=== PATIENT | female | born 1945 | race Caucasian/White ===

== ENCOUNTER 2016-08-14 16:25 | Inpatient (IN) | payer OTHER, MEDICAID ==
[~2016-08-14] VITALS: Ht 167.6 cm; Wt 74.4 kg
[~2016-08-14 16:25] MED LIST: ABILIFY5 MG PO; ALAVERT10 MG PO; AMBIEN5 MG PO; AMITIZA24 MCG PO; ASPI-COR81 M1 PO; ASPIRIN81 M1 PO; BACTRIM DS 800/1 TAB PO; BENZTROPINE2 MG PO; CARBIDOPA & LEV1 TA1 PO; COLACE100 M1 PO; DEPAKOTE ER500 MG PO; DOCUSATE SODIU250 M1 PO; EVISTA60 MG PO; LASIX20 MG PO; LEVOTHYROXIN0.075 M1 PO; MOTRIN600 MG PO; NEURONTIN300 MG PO; OMEPRAZOLE20 M1 PO; OXYBUTYNIN10 MG PO; OYSCO 500500 M1 PO; OYSTER CALCIUM500 M1 PO; RISPERIDONE4 MG PO; SEROQUEL200 MG PO; SEROQUEL300 MG PO; SEROQUEL50 MG PO; SYNTHROID0.088 MG PO; TEGRETOL200 M1 PO; VITAMIN D35000 IU PO; ZYPREXA10 MG PO; ZYPREXA15 MG PO
[2016-08-14 16:37] VITALS: BP 102/83
--- NOTE | 2016-08-14 16:49 | NUR ---
Patient taken to XRAY via wheelchair per tech.
--- NOTE | 2016-08-14 17:00 | NUR ---
Patient back from XRAY via wheelchair per tech.
--- NOTE | 2016-08-14 19:50 | NUR ---
LAC TO LEFT HAND IS CAUSED BY PT BITING ON HER HAND, SWELLING TO LEFT HAND IS RELATED TO HER PULLING ON HER FINGERS
--- NOTE | 2016-08-14 19:50 | NUR ---
PATIENT PRESENTS TO ED WITH C/O L HAND AND FINGER SWELLING X 1 DAY S/P PT PULLING ON FINGERS WITH A LAC TO THE L HAND AND A LEFT SIDE HIP DECUB; SEEN AT [facility] FOR TX GIVEN SANTYL OINT AND FOAM . PT DENIES N/V/D; SKIN IS PINK/WARM/DRY; AAOX4 WITH EVEN AND STEADY GAIT; LUNGS CLEAR BL; HR EVEN AND REGULAR; PT DENIES ANY FEVER, CP, SOB, OR COUGH AT THIS TIME; PATIENT STATES PAIN OF 0/10 AT THIS TIME; VSS; PATIENT POSITIONED FOR COMFORT; HOB ELEVATED; BEDRAILS UP X2; BED DOWN. ER MD MADE AWARE OF PT STATUS.
--- NOTE | 2016-08-14 19:50 | NUR ---
TO ER BED 8
--- NOTE | 2016-08-14 20:48 | NUR ---
Patient being evaluated by physician DR MANJARREZ at bedside.
[2016-08-14] MEDS ORDERED: NACL 0.9% 1,000 ML IV ONE (21:05)
[2016-08-14] MEDS ORDERED: CLINDAMYCIN 900 MG in DEXTROSE 5% 100 ML IV ONE (22:00)
[2016-08-14] MEDS ORDERED: PIPERACILLIN/TAZOBACTAM 3.375 GM in DEXTROSE 5% 50 ML IV ONE (22:05)
[2016-08-14] MEDS: NACL 0.9% 1,000 ML IV SCH (22:09)
[2016-08-14] MEDS ORDERED: ONDANSETRON 4 MG/2 ML VIAL IVP PRN (22:10)
[2016-08-14] MEDS ORDERED: HYDROcodone/APAP 5/325 MG 1 TAB TAB PO PRN (22:10)
[2016-08-14] MEDS ORDERED: MORPHINE SULFATE 2 MG/ML SYR IVP PRN (22:10)
[2016-08-14] MEDS ORDERED: CLINDAMYCIN 900 MG/6 ML VIAL IV ONE (22:10)
[2016-08-14] MEDS ORDERED: LEVOFLOXACIN 500 MG/D5W PREMIX 100 ML IV SCH (22:10)
[2016-08-14] MEDS ORDERED: THERAHONEY GEL 42.5 GM TP PRN (22:15)
[2016-08-14] MEDS ORDERED: ALBUTEROL SULFATE/IPRATROPIU 3 ML SOL IH PRN (22:20)
--- NOTE | 2016-08-14 22:32 | NUR ---
Patient will be admitted to care of DR MILLER . Admited to TELE 109A. Will go to room 109A . Belongings list completed. Report to ANA MARIE .
--- NOTE | 2016-08-14 22:32 | NUR ---
Pt report given to ANA MARIE . Transfer of care at this time.
--- NOTE | 2016-08-14 22:32 | NUR ---
ANA RN TO INFUSE ZOSYN AFTER CLEOCIN COMPLETED
[2016-08-14] MEDS: ALBUTEROL SULFATE/IPRATROPIU 3 ML SOL IH SCH (23:00)
[2016-08-14] MEDS ORDERED: LORazepam 2 MG/ML VIAL ONE (23:19)
--- NOTE | 2016-08-14 23:30 | NUR ---
PATIENT ARRIVED ON UNIT VIA GURNEY. PATIENT IS AWAKE NOT ORIENTED. ACCOMPANIED BY CAREGIVER. PATIENT IS AAOX1, ON ROOM AIR, PATIENT TRANSFERRED TO BED IN ROOM. PATIENT WAS SCREAMING AND TRYING TO HIT AND BITE. SKIN IS NON INTACT WITH LEFT HIP DECUB ULCER COVERED WITH DRESSING, DRY AND INTACT, PATIENT ALSO HAS ABRASIONS TO RIGHT AND LEFT HANDS WITH CELLULITIS TO RIGHT HAND. IV TO RIGHT AC PATENT AND INTACT. PATIENT CONNECTED TO TELE MONITOR. DISCUSSED PLAN OF CARE WITH PATIENT, PATIENT UNABLE TO COMPREHEND. SAFETY MEASURES CHECKED, BED ALARM ON, CALL LIGHT WITHIN REACH. WILL CONTINUE TO MONITOR.
[2016-08-15] VITALS: BP 151/72
--- NOTE | 2016-08-15 | NUR ---
PATIENT WAS AGITATED AND SCREAMING, ADMINISTERED ATIVAN PER MD ORDER, CALL LIGHT WITHIN REACH. WILL CONTINUE TO MONITOR.
[2016-08-15] MEDS ORDERED: PIPERACILLIN/TAZOBACTAM 3.375 GM VIAL IV ONE (00:24)
[2016-08-15] MEDS: LORazepam 2 MG/ML VIAL IVP PRN ×2 (00:34→04:43)
--- NOTE | 2016-08-15 02:20 | NUR ---
PATIENT RESTING CALM IN BED, NO SOB OR SIGN OF DISTRESS AT THIS TIME, CALL LIGHT WITHIN REACH. WILL CONTINUE TO MONITOR.
--- NOTE | 2016-08-15 02:57 | NUR ---
PATIENT SCREAMING, APPEARS UNCOMFORTABLE, ADMINISTERED MORPHINE PER MD ORDER, WILL CONTINUE TO MONITOR.
[2016-08-15] MEDS: ALBUTEROL SULFATE/IPRATROPIU 3 ML SOL IH SCH ×4 (03:00→15:57)
--- NOTE | 2016-08-15 03:10 | NUR ---
PT WAS AGITATED, SCREAMING AND RN GAVE HER ATIVAN AND FINALLY FELT ASLEEP.HOLD HHN NEB DUE TO HER CONDITION AND PER/RN.NO DISTRESS NOTED OR SOB , SAT 96%IN ROOM AIR
[2016-08-15 04:00] VITALS: BP 123/64
--- NOTE | 2016-08-15 04:18 | NUR ---
VITAL SIGNS STABLE, PATIENT SLEEPING COMFORTABLE, NO SOB OR SIGN OF DISTRESS AT THIS TIME, CALL LIGHT WITHIN REACH. WILL CONTINUE TO MONITOR.
--- NOTE | 2016-08-15 04:40 | NUR ---
PATIENT SCREAMING, ADMINISTERED ATIVAN PER MD ORDER, WILL CONTINUE TO MONITOR.
[2016-08-15] MEDS: LEVOTHYROXINE 0.088 MG TAB PO SCH (05:59)
--- NOTE | 2016-08-15 07:07 | NUR ---
RECEIVED REPORT FROM NIGHT NURSE. PT IS AAOX1, ON ROOM AIR, IV TO RIGHT AC 20G INFUSING WELL. LEFT HIP DECUBITUS ULCER WITH DRESSING DRY AND INTACT. RIGHT HAND ABRASION AND CELLULITIS. INITIAL ASSESSMENT COMPLETED. REVIEWED PLAN OF CARE, PT UNABLE TO VERBALIZED UNDERSTANDING. ALL SAFETY/FALL PRECAUTIONS MET. ALL NEEDS MET. CALL LIGHT WITHIN REACH. WILL CONTINUE TO MONITOR.
--- NOTE | 2016-08-15 07:07 | NUR ---
ENDORSED PATIENT TO DAY RN AT BEDSIDE, PATIENT IN STABLE CONDITION RESTING CALMLY IN BED.
--- NOTE | 2016-08-15 07:26 | NUR ---
HX: DEMENTIA LOC AWAKE CONFUSED COMBATIVE TENDENCY TO ORALLY BITE HHN THERAPY GIVEN VIA BLOWBY DR. ANTONY DUPONT AT BEDSIDE FOR PATIENT ROUNDS
[2016-08-15] MEDS ORDERED: ACETAMINOPHEN 325 MG SUPP RC PRN (07:45)
[2016-08-15 08:00] VITALS: BP 154/80
[2016-08-15] MEDS ORDERED: DOCUSATE SODIUM 100 MG GELCAP PO SCH (09:00)
[2016-08-15] MEDS: CARBIDOPA/LEVODOPA 25/100 MG 1 TAB PO SCH ×2 (09:00→20:52)
[2016-08-15] MEDS: ASPIRIN 81 MG TAB.CHEW PO SCH (09:00)
[2016-08-15] MEDS: PANTOPRAZOLE 40 MG INJ VIAL IVP SCH (09:00)
[2016-08-15] MEDS: CALCIUM CARBONATE 500 MG TAB PO SCH ×3 (09:00→17:00)
[2016-08-15] MEDS: LORATADINE 10 MG TAB PO SCH (09:00)
[2016-08-15] MEDS: OXYBUTYNIN 5 MG TAB PO SCH ×2 (09:00→20:51)
[2016-08-15] MEDS: RALOXIFENE 60 MG TAB PO SCH (09:00)
[2016-08-15] MEDS ORDERED: QUEtiapine FUMARATE 25 MG TAB PO SCH ×2 (09:00→10:40)
[2016-08-15] MEDS: CHOLECALCIFEROL 1,000 IU TAB PO SCH (09:00)
[2016-08-15] MEDS: DOCUSATE SODIUM 100 MG GELCAP PO SCH (09:00)
--- NOTE | 2016-08-15 09:00 | NUR ---
PO MEDS NOT GIVEN. AWAITING SWALLOW EVALUATION. ALL NEEDS MET, CALL LIGHT WITHIN REACH, BED LOCKED IN LOW POSITION, SIDE RAIL UPX2, ALL SAFETY MEASURE ENSURED. WILL CONTINUE TO MONITOR.
[2016-08-15] MEDS ORDERED: LIDOCAINE 1% 500 MG/50 ML VIAL INJ SCH (10:20)
--- NOTE | 2016-08-15 10:45 | NUR ---
PT CURRENTLY SCREAMING AND BITING ON GOWN. ALL NEEDS MET. ALL COMFORT MEASURES MET. ALL SAFETY NEEDS MET. CALL LIGHT WITHIN REACH. WILL CONTINUE TO MONITOR.
[2016-08-15] MEDS ORDERED: CLOTRIMAZOLE 1% 30 GM CRM TUBE TP SCH (11:06)
--- NOTE | 2016-08-15 11:20 | NUR ---
NOTED 0726 HHN THERAPY GIVEN VIA BLOWBY
[2016-08-15] MEDS: LORazepam 2 MG/ML VIAL IM/IVP PRN ×2 (11:44→20:44)
[2016-08-15 12:00] VITALS: BP 129/89
[2016-08-15] MEDS: NACL 0.9% 1,000 ML IV SCH (12:27)
--- NOTE | 2016-08-15 12:55 | NUR ---
PT CURRENTLY SLEEPING. CALL LIGHT WITHIN REACH. WILL CONTINUE TO MONITOR.
[2016-08-15] MEDS: CLINDAMYCIN 300 MG in DEXTROSE 5% 50 ML IV SCH ×2 (13:14→20:44)
[2016-08-15] MEDS: THERAHONEY GEL 42.5 GM TP SCH (13:15)
--- NOTE | 2016-08-15 15:17 | NUR ---
PT CURRENTLY AWAKE AND SCREAMING. ALL SAFETY NEEDS MET. CALL LIGHT WITHIN REACH. WILL CONTINUE TO MONITOR.
[2016-08-15] MEDS: MORPHINE SULFATE 2 MG/ML SYR IVP PRN (15:26)
[2016-08-15 16:00] VITALS: BP 138/73
--- NOTE | 2016-08-15 16:38 | NUR ---
* ST NOTE * Pt seen at bedside with CNAs present. Bedside Dyspagia and oral mechanism exams completed. See evaluation report for further details. Pt unable to follow skilled instructions at this time. Pt accepting 2 PO trials of puree apple sauce 3-4 CCs at a time via a teaspoon, but demonstrating impaired ability to form bolus as well as impaired AP bolus transit, with pt exhibiting labial leakage secondary to bolus sitting on lingua for extended amount of time despite maximal education and cueing provided by clinician. Pt also accepting 2 PO trials of nectar-thick apple juice 3-4 CCs at a time but unable to form bolus or demonstrate AP bolus transit. Pt thus demonstrating oral dysphagia, primarily in oral preparatory stage secondary to pt's inability to recognize food/liquids due to exacerbation of dementia with behavioral disturbance. Pt also biting on spoon when accepting PO trials with dentition, and requiring minimal verbal and tactile cueing to relinquish spoon on lingua or leaking out of oral cavity. It is thus recommended pt remain NPO at this time and receive alternative means of nutrition via enteral feeding to maintain adequate nutrition & hydration secondary to poor potential for PO intake due to advanced dementia. If pt's level of alertness and cognitive function increased, pt is safe to have oral gratification of puree textures with nectar-thick liquids PRN. No further ST follow up recommended at this time. Pt and caregiver/Nursing education completed regarding results of evaluation; benefits of abiding by recommended referral to RD for alternative means of nutrition; and prognosis for improvement; with pt indifferent to clinician's remarks but caregiver/Nursing agreeable with and verbalizing understanding of clinician's recommendations. Recommend: - Pt to remain NPO at this time - RD referral for alternative means of nutrition via enteral feeding secondary to pt exhibiting poor potential for PO intake due to decline in cognitive function - If pt's cognition improves, pt is safe for oral gratification of Puree textures with nectar-thick liquids PRN No further ST follow up recommended at this time. G8996 CN G8997 CM G8998 CM NOMS Level 6 Time In/Out 16:10 - 16:40
--- NOTE | 2016-08-15 17:25 | NUR ---
PT CURRENTLY SLEEPING, NO S/S OF RESPIRATORY DISTRESS NOTED. CALL LIGHT WITHIN REACH. WILL CONTINUE TO MONITOR.
[2016-08-15] MEDS ORDERED: ALBUTEROL SULFATE/IPRATROPIU 3 ML SOL IH PRN (18:35)
--- NOTE | 2016-08-15 19:15 | NUR ---
ENDORSED PLAN OF CARE TO NIGHT NURSE. PT IN STABLE CONDITION
--- NOTE | 2016-08-15 19:20 | NUR ---
RECEIVED REPORT FROM CYNTHIA MCKNIGHT AT BEDSIDE. INITIAL ASSESSMENT COMPLETED. PT AAOX1. PT CONFUSED. PT TRIES TO BITE HER HANDS. PT BEDBOUND. PT HAS STAGE 2 DECUBITUS ULCER ON LEFT HIP COVERED WITH DRESSING DRY AND INTACT. PT HAS ABRASIONS ON RIGHT AND LEFT HANDS. PT IS INCONTINENT. PT HAS MITTENS ON TO PREVENT PT FROM BITING HER HANDS AND REMOVING IV. PT HAS IV TO RIGHT FA G 22; ASYMPTOMATIC, PATENT AND INTACT INFUSING FLUIDS WELL. BED ALARM ON, WILL CONTINUE TO MONITOR PT.
[2016-08-15 20:00] VITALS: BP 142/79
--- NOTE | 2016-08-15 20:41 | NUR ---
PT TRYING TO GET OUT OF BED. PT BITTING HER HANDS; SHE IS VERY ANXIOUS. PT VS STABLE, WILL GIVE ATIVAN ORDERED.
[2016-08-15] MEDS: DIVALPROEX 500 MG TABER PO SCH (20:51)
[2016-08-15] MEDS: QUEtiapine FUMARATE 100 MG TAB PO SCH (20:52)
[2016-08-15] MEDS: OLANZapine 5 MG TAB PO SCH (20:52)
[2016-08-15] MEDS: CLOTRIMAZOLE 1% 30 GM CRM TUBE TP SCH (20:55)
--- NOTE | 2016-08-15 20:55 | NUR ---
2100 MEDICATIONS GIVEN. PO MEDICATIONS NOT GIVEN DUE TO PT BEEN UNABLE TO SWALLOW. WILL CONTINUE TO MONITOR PT.
[2016-08-15] MEDS ORDERED: LEVOFLOXACIN 500 MG/D5W PREMIX 100 ML IV SCH (21:00)
[2016-08-15] MEDS ORDERED: ZOLPIDEM 5 MG TAB PO PRN (21:00)
[2016-08-15] MEDS ORDERED: QUEtiapine FUMARATE 100 MG TAB PO SCH (21:00)
[2016-08-15] MEDS: LEVOFLOXACIN 750 MG/D5W PREMIX 150 ML IV SCH (22:00)
--- NOTE | 2016-08-15 22:30 | NUR ---
PT WET; LINEN CHANGES. PT REPOSITIONED. PT HAS MITTENS ON TO PREVENT PT FROM BITTING HER HANDS. BED ALARM ON.
[2016-08-16] VITALS: BP 139/73
--- NOTE | 2016-08-16 00:05 | NUR ---
PT SCREAMING, PT TRIES TO HIT MEDICAL STAFF WHEN WE TRY TO GET CLOSE TO HER TO ADMINISTER MEDICATION. WILL CONTINUE TO MONITOR PT.
--- NOTE | 2016-08-16 02:40 | NUR ---
IV PUMP ALARMING; SLUSHED IV AND IT IS NOW INFUSING FLUIDS WELL. WILL CONTINUE TO MONITOR PT.
[2016-08-16] MEDS: NACL 0.9% 1,000 ML IV SCH ×2 (02:45→17:03)
[2016-08-16 04:00] VITALS: BP 135/76
--- NOTE | 2016-08-16 04:20 | NUR ---
PT CURRENTLY BITTING IN GOWN. SAFETY MEASURES IN PLACE, WILL CONTINUE TO MONITOR PT.
[2016-08-16] MEDS: CLINDAMYCIN 300 MG in DEXTROSE 5% 50 ML IV SCH ×3 (04:35→21:06)
[2016-08-16] MEDS: LEVOTHYROXINE 0.088 MG TAB PO SCH (05:46)
--- NOTE | 2016-08-16 05:47 | NUR ---
0630 PO MEDS NOT GIVEN DUE TO PT UNABLE TO SWALLOW.
--- NOTE | 2016-08-16 06:42 | NUR ---
I CALLED ANISA GARCIA #[phone] NO ANSWER LEFT MESSAGE.CALLED KELSEA CASTANO #[phone].SHE SAID HAS TO CALL PT.'S PROPERTY MASTER MISS PALMER # [phone] CALLED. NO ANSWER LEFT MESSAGE.
--- NOTE | 2016-08-16 07:27 | NUR ---
RECEIVED REPORT FROM NIGHT NURSE. PT IS AAOX1, ON ROOM AIR, IV TO RIGHT FA 22 G INFUSING WELL. LEFT HIP DECUBITUS ULCER WITH DRESSING DRY AND INTACT. RIGHT HAND ABRASION AND CELLULITIS LEFT HAND ABRASION FROM BITING HANDS. INITIAL ASSESSMENT COMPLETED. REVIEWED PLAN OF CARE, PT UNABLE TO VERBALIZED UNDERSTANDING. ALL SAFETY/FALL PRECAUTIONS MET. ALL NEEDS MET. CALL LIGHT WITHIN REACH. WILL CONTINUE TO MONITOR.
--- NOTE | 2016-08-16 07:27 | NUR ---
ENDORSED PLAN OF CARE TO CYNTHIA HAWKINS PT IN STABLE CONDITION.
[2016-08-16 08:00] VITALS: BP 138/76
[2016-08-16] MEDS: CHOLECALCIFEROL 1,000 IU TAB PO SCH (09:00)
[2016-08-16] MEDS: DOCUSATE SODIUM 100 MG GELCAP PO SCH (09:00)
[2016-08-16] MEDS: RALOXIFENE 60 MG TAB PO SCH (09:00)
[2016-08-16] MEDS: CARBIDOPA/LEVODOPA 25/100 MG 1 TAB PO SCH ×2 (09:00→21:00)
[2016-08-16] MEDS: OXYBUTYNIN 5 MG TAB PO SCH ×2 (09:00→21:00)
[2016-08-16] MEDS: ASPIRIN 81 MG TAB.CHEW PO SCH (09:00)
[2016-08-16] MEDS: LORATADINE 10 MG TAB PO SCH (09:00)
[2016-08-16] MEDS: QUEtiapine FUMARATE 25 MG TAB PO SCH (09:00)
[2016-08-16] MEDS: CALCIUM CARBONATE 500 MG TAB PO SCH ×3 (09:00→17:00)
[2016-08-16] MEDS: CLOTRIMAZOLE 1% 30 GM CRM TUBE TP SCH ×2 (09:25→21:09)
[2016-08-16] MEDS: PANTOPRAZOLE 40 MG INJ VIAL IVP SCH (09:25)
--- NOTE | 2016-08-16 09:33 | NUR ---
PO MEDICATIONS NOT GIVEN. PT UNABLE TO SWALLOW. PT CURRENTLY AWAKE, NO S/ OF DISTRESS NOTED. ALL SAFETY NEEDS MET. CALL LIGHT WITHIN REACH. WILL CONTINUE TO MONITOR.
[2016-08-16] MEDS: MORPHINE SULFATE 2 MG/ML SYR IVP PRN ×2 (11:08→17:04)
--- NOTE | 2016-08-16 11:35 | NUR ---
PT CURRENTLY SLEEPING, NO S/S OF DISTRESS NOTED. ALL SAFETY NEEDS MET, CALL LIGHT WITHIN REACH. WILL CONTINUE TO MONITOR.
[2016-08-16 12:00] VITALS: BP 143/95
[2016-08-16] MEDS: THERAHONEY GEL 42.5 GM TP SCH (12:28)
[2016-08-16] MEDS: LORazepam 2 MG/ML VIAL IM/IVP PRN (14:06)
--- NOTE | 2016-08-16 14:20 | NUR ---
WOUND CARE EVALUATION NOTES: REASON FOR EVALUATION: DECUBITUS ULCER LEFT HIP COMPLETE SKIN ASSESSMENT DONE ON THIS 70 Y/O FEMALE PATIENT FROM [facility] TO [facility], WITH INITIAL DIAGNOSIS OF ASPIRATION PNEUMONIA. PAST MEDICAL HISTORY INCLUDE DEMENTIA WITH BEHAVIORAL DISTURBANCE, HYPOTHYROIDISM, LEFT HIP DECUBITUS ULCER AND OSTEOPOROSIS. ALL ABOVE INFORMATION WAS OBTAINED FROM THE ADMISSION. LABS ARE WBC 5.6, H/H 10.7/33.5, GLUCOSE 86, ALBUMIN 2.8, PT/INR 10.7/1.1 AND PTT 25.6. CURRENT MEDS INCLUDE SEROQUEL, AMBIEN, LEVOFLOXACIN, CLINDAMYCIN, ATIVAN, MORPHINE, HEPARIN AND ASPIRIN. PATIENT IS AWAKE, NO VERBAL, MOANS AND GROANS WHEN MOVE AND UNABLE TO FOLLOW SIMPLE COMMANDS. EYES ABLE TO TRACK MOVEMENT. SKIN WARM TO TOUCH WNL, TOENAILS ARE THICKENED AND YELLOW, NO EDEMA, FINE HAIR GROWTH AND +2 BILATERAL PEDAL PULSES. URINE AND BOWEL INCONTINENT. NEEDS MAX ASSISTANCE IN TURNING. INITIAL PLAN OF CARE AND PRESSURE PREVENTIVE MEASURES DISCUSSED, UNABLE TO VERBALIZE UNDERSTANDING. WILL REINFORCE TEACHING. INTEGUMENTARY: LEFT HIP - ST III - S/P BEDSIDE DEBRIDEMENT BY RESIDENT PHYSICIANS, DR DAWN AND DR PENA. FOR MEASUREMENTS AND DESCRIPTION, PLEASE REFER TO WOUND ASSESSMENT FLOWSHEET MULTIPLE SELF INFLICTED ABRASIONS TO RIGHT AND LEFT HAND - PATIENT BITES HERSELF AT TIMES RECOMMENDATIONS: -CLEANSE LEFT HIP WITH NS AND GAUZE, PAT DRY, APPLY THERAHONEY GEL, ADAPTIC AND COVER WITH COMPOSITE DRESSING Q DAY AND PRN WITH SOILING/DISPLACEMENT. -TURN AND REPOSITION PATIENT Q2H TO RIGHT AND SUPINE ONLY TO OFFLOAD SACRALCOCCYX AND LEFT HIP -ASSESS AND MONITOR SKIN CONDITION DURING POSITION CHANGE, PLEASE PAY PARTICULAR ATTENTION TO SACRALCOCCYX, ELBOWS AND HEELS -OFFLOAD BILATERAL HEELS BY PLACING PILLOWS UNDER CALVES AT ALL TIMES, UNLESS OTHERWISE CONTRAINDICATED -PRESSURE REDISTRIBUTION SURFACE THERAPY -KEEP SKIN CLEAN AND DRY AT ALL TIMES. RECOMMENDATIONS DISCUSSED WITH PRIMARY RN AND RESIDENT PHYSICIANS, DR. PENA AND DR. DAWN WILL FOLLOW UP PATIENT Q 7 DAYS AND PRN. PLEASE CONTACT [facility] FOR ANY CONCERNS, QUESTIONS AND CHANGES IN SKIN CONDITION.
--- NOTE | 2016-08-16 14:31 | NUR ---
08/16/16 RD INITIAL ASSESSMENT COMPLETED PLEASE REFER TO NUTRITION ASSESSMENT UNDER CARE ACTIVITY FOR ESTIMATED NUTRITIONAL NEEDS. RD RECOMMENDATIONS: 1. IF/WHEN NGTUBE SUCCESSFULLY PLACED, RECOMMEND INITIATING NUTRITION SUPPORT ISOSOURCE AT 20 ML/HR AND ADVANCE TOLERATED 10 ML Q4H TO GOAL OF 50 ML/HR. --AT GOAL THIS WILL PROVIDE 1200 ML TOTAL VOLUME, 1800 KCAL, [address] WILL F/U 2-3 DAYS; HIGH RISK. CASSIDY DOMINGUEZ RD
[2016-08-16 16:00] VITALS: BP 142/74
[2016-08-16] MEDS ORDERED: MAGNESIUM OXIDE 400 MG TAB PO SCH (16:00)
[2016-08-16] MEDS ORDERED: MAG SULF 2000 MG/WATER PREMIX 50 ML IV SCH (16:17)
[2016-08-16] MEDS: DEXT 5% /NACL 0.9% 1,000 ML IV SCH (16:30)
--- NOTE | 2016-08-16 16:45 | NUR ---
ATTEMPTED NG TUBE INSERTION, PT UNABLE TO TOLERATE, MD AWARE. ALL SAFETY NEEDS MET. WILL CONTINUE TO MONITOR.
--- NOTE | 2016-08-16 17:03 | NUR ---
Social Service Note: Patrice Bloom from [facility], unable to accept patient due to behavior issues. Per Paris from [facility], unable to accept patient due to behavior issues. Patrice Alejandra from [facility] will review inquiry and follow up with Senior Education Specialist Natalya on Friday08/19/16
--- NOTE | 2016-08-16 17:45 | NUR ---
PT CURRENTLY SLEEPING, NO S/S OF DISTRESS NOTED. AL SAFETY NEEDS MET. WILL CONTINUE TO MONITOR.
--- NOTE | 2016-08-16 18:22 | NUR ---
Social Service Note: I faxed inquiries to Ladonna Nice, [facility], Sheri Lucas, Alexey Whitaker, and Refugio Smith (SNFs)
--- NOTE | 2016-08-16 19:12 | NUR ---
NO DISTRESS/SOB/WHEEZING NOTED AT THIS TIME. NO INDICATION FOR HHN PRN TX.
--- NOTE | 2016-08-16 19:22 | NUR ---
ENDORSED PLAN OF CARE TO NIGHT NURSE, PT IN STABLE IN CONDITION.
--- NOTE | 2016-08-16 19:23 | NUR ---
RECEIVED REPORT FROM MORNING NURSE AT BEDSIDE. PT IS RESTING IN BED, AAOX1, UNABLE TO FOLLOW COMMANDS AND MAKE NEEDS KNOWN. NO S/S OF SOB/DISTRESS NOTED, BREATHING EVEN AND UNLABORED, CLEAR LUNG SOUNDS, ON ROOM AIR, TELE MONITOR WITH ST. SOFT ABD WITH ACTIVE BOWEL SOUNDS. INCONTINENT B&B'S. ABLE TO MOVE ALL EXTREMITIES, BUT BEDBOUND DUE TO CONFUSION AT THIS TIME. IV TO LEFT FA 22 GA RUNNING D5NS. AFEBRILE, SKIN IS WARM AND DRY TO TOUCH. LEFT HIP WOUND COVERED WITH DRESSING, C/D/I. RIGHT HAND ABRASION AND CELLULITIS LEFT HAND ABRASION FROM BITING HANDS. INITIAL ASSESSMENT COMPLETED. PLAN OF CARE REVIEWED, PT UNABLE TO VERBALIZED UNDERSTANDING. SAFETY MEASURES MAINTAINED, CALL LIGHT WITHIN REACH. WILL CONTINUE TO MONITOR.
[2016-08-16 20:00] VITALS: BP 148/89
[2016-08-16] MEDS: DIVALPROEX 500 MG TABER PO SCH (21:00)
[2016-08-16] MEDS: OLANZapine 5 MG TAB PO SCH (21:00)
[2016-08-16] MEDS: QUEtiapine FUMARATE 100 MG TAB PO SCH (21:00)
--- NOTE | 2016-08-16 21:00 | NUR ---
PT IS NPO, PO MEDICATION HOLD AT THIS TIME. IV MEDICATION GIVEN ORDERED, PT TOLERATED WELL.
[2016-08-16] MEDS: LEVOFLOXACIN 750 MG/D5W PREMIX 150 ML IV SCH (21:06)
[2016-08-17] VITALS: BP 152/88
--- NOTE | 2016-08-17 | NUR ---
NO CHANGE OF CONDITION AT THIS TIME, VSS.
[2016-08-17] MEDS: MORPHINE SULFATE 2 MG/ML SYR IVP PRN (01:37)
[2016-08-17] MEDS: LORazepam 2 MG/ML VIAL IM/IVP PRN ×2 (01:37→04:52)
--- NOTE | 2016-08-17 01:40 | NUR ---
PT IS RESTLESSNESS, SCREAMING, IV SITE WAS PULLED OUT ACCIDENTALLY, RESTARTED NEW IV SITE TO LEFT AC, 20GA. EDUCATED AND MEDICATED WITH MEDICATIONS.
[2016-08-17 04:00] VITALS: BP 134/65
--- NOTE | 2016-08-17 04:00 | NUR ---
PT IS ASLEEP QUIETLY IN BED, NO CHANGE OF CONDITION AT THIS TIME, VSS.
[2016-08-17] MEDS: CLINDAMYCIN 300 MG in DEXTROSE 5% 50 ML IV SCH ×3 (04:51→20:43)
[2016-08-17] MEDS: LEVOTHYROXINE 0.088 MG TAB PO SCH (06:23)
[2016-08-17] MEDS: NACL 0.9% 1,000 ML IV SCH ×2 (07:21→21:52)
--- NOTE | 2016-08-17 07:30 | NUR ---
RECEIVED REPORT FROM WALTER MARIE AT BEDSIDE. PT OPENS EYES BUT UNABLE TO FOLLOW COMMANDS . NO S/S OF RESPIRATORY DISTRESS NOTED, ON ROOM AIR, TELE MONITOR WITH SR. SOFT ABD WITH ACTIVE BOWEL SOUNDS. ABLE TO MOVE ALL EXTREMITIES, IV TO LEFT FA #22 , SITE INTACT AND PATENT.SKIN IS WARM AND DRY TO TOUCH. SKIN NON INTACT ( SEE WOUND ASSESSMENT). INITIAL ASSESSMENT COMPLETED. PLAN OF CARE REVIEWED, PT UNABLE TO VERBALIZED UNDERSTANDING. SAFETY MEASURES IN PLACE, WILL CONTINUE TO MONITOR PT.
[2016-08-17 08:00] VITALS: BP 127/77
[2016-08-17] MEDS: CLOTRIMAZOLE 1% 30 GM CRM TUBE TP SCH ×2 (09:00→20:44)
[2016-08-17] MEDS: RALOXIFENE 60 MG TAB PO SCH (09:00)
[2016-08-17] MEDS: CARBIDOPA/LEVODOPA 25/100 MG 1 TAB PO SCH ×2 (09:00→20:22)
[2016-08-17] MEDS: CALCIUM CARBONATE 500 MG TAB PO SCH ×3 (09:00→17:00)
[2016-08-17] MEDS: CHOLECALCIFEROL 1,000 IU TAB PO SCH (09:00)
[2016-08-17] MEDS: ASPIRIN 81 MG TAB.CHEW PO SCH (09:00)
[2016-08-17] MEDS: OXYBUTYNIN 5 MG TAB PO SCH ×2 (09:00→20:21)
[2016-08-17] MEDS: QUEtiapine FUMARATE 25 MG TAB PO SCH (09:00)
[2016-08-17] MEDS: LORATADINE 10 MG TAB PO SCH (09:00)
[2016-08-17] MEDS: DOCUSATE SODIUM 100 MG GELCAP PO SCH (09:00)
--- NOTE | 2016-08-17 09:00 | NUR ---
PT NPO, PO MED HOLD . AWARE.
--- NOTE | 2016-08-17 10:20 | NUR ---
INSERTED NG TUBE PER MD ORDER, PLACEMENT VERIFIED. WILL CALL X-RAY TO CHECK PLACEMENT.
[2016-08-17] MEDS ORDERED: MAG SULF 2000 MG/WATER PREMIX 50 ML IV ONE (10:30)
[2016-08-17] MEDS: PANTOPRAZOLE 40 MG INJ VIAL IVP SCH (10:56)
--- NOTE | 2016-08-17 11:15 | NUR ---
PT ACCIDENTLY PULLED OUT THE NG TUBE WHILE TURNING PT. X-RAY PRESENT AT BEDSIDE AT THIS TIME. WILL CALL X-RAY TECH WHEN REINSERTION NG TUBE IS DONE.
--- NOTE | 2016-08-17 11:30 | NUR ---
PT RESTING IN BED, NO S/S OF RESPIRATORY DISTRESS NOTED.
[2016-08-17 12:00] VITALS: BP 130/65
--- NOTE | 2016-08-17 12:30 | NUR ---
RECEIVED PT REPORT FROM NILDA MARIE AT BEDSIDE. PT SHOWS NO S/S OF DISTRESS. PT IS AAOX1. PT HAS IV ON LEFT AC AND LEFT FORE ARM. BOTH IV'S ARE PATENT AND INTACT. PT HAS NON PITTING EDEMA ON BLE. PT HAS L HIP PRESSURE ULCER WITH A DRESSING AND IT IS DRY AND INTACT. PT IS CONFUSED AND PULLED OUT NGT PER NILDA MARIE. PT IS ON SOFT WRIST RESTRAINTS PER DR'S ORDER. WILL CONTINUE TO MONITOR.
--- NOTE | 2016-08-17 12:40 | NUR ---
REPORT GIVEN TO
[2016-08-17] MEDS: THERAHONEY GEL 42.5 GM TP SCH (13:00)
--- NOTE | 2016-08-17 14:30 | NUR ---
ATTEMPTED TO INSERT NGT TO PT. PT WAS SCREAMING AND RESISTED PROCEDURE. PT IS UNABLE TO FOLLOW COMMANDS. DR. CURRY IS AWARE. DR. CURRY CONTINUE NPO ORDER. PT HAS NO S/S OF DISTRESS NOTED. WILL CONTINUE TO MONITOR.
[2016-08-17 16:00] VITALS: BP 121/72
[2016-08-17] MEDS: DEXT 5% /NACL 0.9% 1,000 ML IV SCH (16:10)
--- NOTE | 2016-08-17 17:00 | NUR ---
PT WAS GIVEN PERINEAL CARE. PT WOUND DRESSING WAS CHANGED ORDERED. PT WAS REPOSITIONED WITH ASSISTANCE OF TWO NURSE ASSISTANTS. PT IS UNEASY AND UNCOOPERATIVE. PT IS STILL ON SOFT RESTRAINTS.
--- NOTE | 2016-08-17 19:20 | NUR ---
GAVE REPORT TO NIGHT NURSE AT BEDSIDE. PT ENDORSED IN STABLE CONDITION.
--- NOTE | 2016-08-17 19:39 | NUR ---
NO DISTRESS/SOB/WHEEZING NOTED AT THIS TIME. NO INDICATION FOR HHN PRN TX.
--- NOTE | 2016-08-17 19:40 | NUR ---
RECEIVED REPORT FROM CYNTHIA CARBAJAL. INITIAL ASSESSMENT COMPLETED. PT IS AWAKE. IV ACCESS AT LAC 20G ON SALINE LOCK, IVF INFUSING AT LEFT FOREARM 20G. RECEIVED PT ON BILATERAL SOFT WRIST RESTRAINTS. NO SIGNS OF DISTRESS AT THIS TIME. BED IN LOW POSITION, SAFETY MEASURE ENSURE. CALL LIGHT WITHIN REACH. WILL CONTINUE TO MONITOR. Addendum: 08/17/16 at 2230 by Beka Powell RN IV ACCESS IS 22G LEFT FOREARM AND 22G LEFT AC AND NOT 20G LEFT FOREARM NOR 20G LEFT AC.
--- NOTE | 2016-08-17 19:54 | NUR ---
DR. STAFFORD NOTIFIED THAT PT STILL DOES NOT HAVE NGT. AM SHIFT WAS NOT SUCCESSFUL IN PUTTING IN NGT. WILL TRY TO INSERT NGT.
[2016-08-17 20:00] VITALS: BP 138/94
[2016-08-17] MEDS: QUEtiapine FUMARATE 100 MG TAB PO SCH (20:21)
[2016-08-17] MEDS: OLANZapine 5 MG TAB PO SCH (20:22)
[2016-08-17] MEDS: DIVALPROEX 500 MG TABER PO SCH (20:23)
--- NOTE | 2016-08-17 21:30 | NUR ---
PT SHOUTS, TRIES TO REMOVE IV LINES.
[2016-08-17] MEDS: LEVOFLOXACIN 750 MG/D5W PREMIX 150 ML IV SCH (21:52)
[2016-08-18] VITALS: BP 125/75
--- NOTE | 2016-08-18 00:30 | NUR ---
PT QUIET AT THIS TIME. WILL CONTINUE TO MONITOR.
[2016-08-18] MEDS: LORazepam 2 MG/ML VIAL IM/IVP PRN ×3 (02:59→13:22)
--- NOTE | 2016-08-18 03:11 | NUR ---
PT GIVEN ATIVAN IV ORDERED. PT AGITATED, KEEPS SHOUTING.
[2016-08-18 04:00] VITALS: BP 138/71
[2016-08-18] MEDS: CLINDAMYCIN 300 MG in DEXTROSE 5% 50 ML IV SCH ×3 (04:23→20:32)
[2016-08-18] MEDS: LEVOTHYROXINE 0.088 MG TAB PO SCH (05:41)
--- NOTE | 2016-08-18 05:41 | NUR ---
TRIED 3 TIMES FOR NGT INSERTION, INSERTION UNSUCCESSFUL, PT KEEPS ON MOVING HER HEAD, AGGRESSIVE AND UNCOOPERATIVE, BITING, PUNCHING AND KICKING EVEN WITH BILATERAL SOFT WRISTS RESTRAINTS.
--- NOTE | 2016-08-18 06:09 | NUR ---
MORNING CARE DONE. DRESSING CHANGED DUE TO SOILING.
--- NOTE | 2016-08-18 06:36 | NUR ---
ASSISTED SENIOR MAJOR GIFTS OFFICER IN DRAWING BLOOD. SENIOR MAJOR GIFTS OFFICER WANTS IT VIA PERIPHERAL BLOOD, I TOLD HER THAT PT HAS BEEN ON IV FLUIDS AND IV ANTIBIOTIC VIA PERIPHERAL LINE. Addendum: 08/18/16 at 0639 by Beka Powell RN SENIOR MAJOR GIFTS OFFICER THANIA
--- NOTE | 2016-08-18 07:21 | NUR ---
REPOPRT GIVEN TO CYNTHIA ZIMMERMAN AND CYNTHIA SIDDIQUI FOR CONTINUITY OF CARE. NO DISTRESS NOTED AT THIS TIME.
--- NOTE | 2016-08-18 07:22 | NUR ---
PT AWAKE AND QUIET AT THIS TIME, DOES NOT FOLLOW COMMANDS, NON VERBAL INCOMPREHENSIBLE MUMBLING AT THIS TIME, NO SIGNS OF ACUTE DISTRESS, BREATHING EVEN AND UNLABORED BILATERALLY, ABDOMEN SOFT NON-TENDER TO TOUCH, BOWEL AND BLADDER INCONTINENCE, BEDFAST, NOTED DRY DRESSING ON LEFT HIP, SKIN IS WARM AND DRY, FLACC SCALE 0 AT THIS TIME, BILATERAL SOFT WRIST RESTRAINTS IN PLACE, BED IN LOW POSITION WITH BILATERAL HALF SIDE RAILS UP, CALL LIGHT WITHIN REACH.
[2016-08-18 08:00] VITALS: BP 138/83
[2016-08-18] MEDS: PANTOPRAZOLE 40 MG INJ VIAL IVP SCH (08:35)
[2016-08-18] MEDS: CLOTRIMAZOLE 1% 30 GM CRM TUBE TP SCH ×2 (08:47→22:04)
[2016-08-18] MEDS ORDERED: GAUZE TP PRN (08:55)
[2016-08-18] MEDS ORDERED: NACL 0.9% IRR 250 ML BOTTLE IR PRN (08:55)
[2016-08-18] MEDS ORDERED: COMPOSITE DRESSING TP PRN (08:55)
[2016-08-18] MEDS: ASPIRIN 81 MG TAB.CHEW PO SCH (08:57)
[2016-08-18] MEDS: LORATADINE 10 MG TAB PO SCH (08:58)
[2016-08-18] MEDS: OXYBUTYNIN 5 MG TAB PO SCH ×2 (08:58→21:45)
[2016-08-18] MEDS: DOCUSATE SODIUM 100 MG GELCAP PO SCH (08:58)
[2016-08-18] MEDS: QUEtiapine FUMARATE 25 MG TAB PO SCH (08:58)
[2016-08-18] MEDS: RALOXIFENE 60 MG TAB PO SCH (08:58)
[2016-08-18] MEDS: CALCIUM CARBONATE 500 MG TAB PO SCH ×3 (08:58→17:37)
[2016-08-18] MEDS: CHOLECALCIFEROL 1,000 IU TAB PO SCH (08:59)
[2016-08-18] MEDS: CARBIDOPA/LEVODOPA 25/100 MG 1 TAB PO SCH ×2 (08:59→21:44)
--- NOTE | 2016-08-18 10:29 | NUR ---
WAS SEEN BY DR CURRY AND RIVERA MADE AWARE UNABLE TO INSERT NG TUBE DUE TO PATIENT'S NON-COMPLIANCE, ALSO MADE AWARE OF NEED FOR RESTRAINT ORDER RENEWAL, MD VERBALIZED WILL PLACE ORDERS.
--- NOTE | 2016-08-18 11:15 | NUR ---
RECEIVED NEW DIET ORDER FOR PUREED DIET, CALLED KITCHEN TO SEND TRAY. WILL CARRY OUT.
[2016-08-18 11:40] VITALS: BP 132/62
[2016-08-18] MEDS: NACL 0.9% 1,000 ML IV SCH (11:57)
[2016-08-18] MEDS: NACL 0.9% IRR 250 ML BOTTLE IR SCH (12:10)
[2016-08-18] MEDS: COMPOSITE DRESSING TP SCH (12:10)
[2016-08-18] MEDS: THERAHONEY GEL 42.5 GM TP SCH (12:11)
[2016-08-18] MEDS: GAUZE TP SCH (12:11)
--- NOTE | 2016-08-18 12:23 | NUR ---
PT ABLE TO TOLERATE DIET FOR LUNCH. ASPIRATION PRECAUTIONS MAINTAINED. ABLE TO TAKE 100% OF LUNCH WITH PUREE HONEY THICKENED LIQUID. CONTINUE TO MONITOR.
[2016-08-18 16:00] VITALS: BP 143/74
[2016-08-18] MEDS: DEXT 5% /NACL 0.9% 1,000 ML IV SCH (17:37)
--- NOTE | 2016-08-18 18:48 | NUR ---
PT AWAKE AND ALERT X1, NO SIGNS OF ACUTE DISTRESS, RESTING COMFORTABLY, FLACC 0, TO ENDORSE TO CALENDER WORKER HELPER NURSE FOR CONTINUITY OF CARE.
--- NOTE | 2016-08-18 19:30 | NUR ---
RECEIVED PT SLEEPING, EASILY AROUSABLE, AWAKE BUT NON-VERBAL, UNABLE TO FOLLOW COMMANDS, VITAL SIGNS STABLE, NO SIGNS OF SOB, IVF INFUSING WELL, WITH JASWINDER SOFT WRIST RESTRAINTS AND MITTENS, PROTOCOL IN PLACE, ON WOUND BED, LEFT HIP DRESSING DRY AND INTACT, SAFETY MEASURES IN PLACE, SIDE RAILS UP AND BED ALARM ON, CALL LIGHT WITHIN REACH.
[2016-08-18 20:00] VITALS: BP 114/57
[2016-08-18] MEDS: OLANZapine 5 MG TAB PO SCH (21:44)
[2016-08-18] MEDS: QUEtiapine FUMARATE 100 MG TAB PO SCH (21:45)
[2016-08-18] MEDS: LEVOFLOXACIN 750 MG/D5W PREMIX 150 ML IV SCH (21:45)
[2016-08-18] MEDS: DIVALPROEX 500 MG TABER PO SCH (21:45)
--- NOTE | 2016-08-18 21:50 | NUR ---
DUE PO MEDICATION CRUSHED AND GIVEN WITH APPLE SAUCE WITH ASPIRATION PRECAUTION, TOLERATED WELL, REPOSITION Q2H AND OFFLOAD PRESSURE AREAS.
--- NOTE | 2016-08-18 23:40 | NUR ---
PT SLEEPING, EASILY AROUSABLE, VITAL SIGNS STABLE, RESTRAINTS RELEASE FOR 15 MINUTES BUT PT TRIES TO BITE HER HAND, UNABLE TO FOLLOW COMMAND, UNABLE TO DO ORAL CARE, PT KEEPS ON BITING, INCONTINENT WITH URINE, PERINEAL CARE DONE BY JAZZ SINGER, CONTINUE TO REPOSITION Q2H AND OFFLOAD PRESSURE AREAS, MONITORED CLOSELY.
[2016-08-19] VITALS: BP 124/69
[2016-08-19] MEDS: NACL 0.9% IRR 250 ML BOTTLE IR SCH ×2 (00:47→13:00)
[2016-08-19] MEDS: COMPOSITE DRESSING TP SCH ×2 (00:47→13:00)
[2016-08-19] MEDS: GAUZE TP SCH ×2 (00:47→13:00)
[2016-08-19] MEDS: LORazepam 2 MG/ML VIAL IM/IVP PRN (01:33)
--- NOTE | 2016-08-19 01:35 | NUR ---
PATIENT AGITATED, KEEPS ON SHOUTING, UNABLE TO FOLLOW COMMANDS, MEDICATED PRN WITH ATIVAN, MONITORED CLOSELY.
[2016-08-19] MEDS: NACL 0.9% 1,000 ML IV SCH ×2 (02:15→16:33)
[2016-08-19 04:00] VITALS: BP 112/60
--- NOTE | 2016-08-19 04:00 | NUR ---
PT SLEEPING, EASILY AROUSABLE VITAL SIGNS STABLE, NO SIGNS OF DISTRESS, CONTINUE ON RESTRAINTS PROTOCOL, MONITORED CLOSELY.
[2016-08-19] MEDS: CLINDAMYCIN 300 MG in DEXTROSE 5% 50 ML IV SCH ×3 (05:11→20:31)
[2016-08-19] MEDS: DEXT 5% /NACL 0.9% 1,000 ML IV SCH ×2 (05:15→16:10)
[2016-08-19] MEDS: LEVOTHYROXINE 0.088 MG TAB PO SCH (05:59)
--- NOTE | 2016-08-19 06:00 | NUR ---
PT SLEEPING, EASILY AROUSABLE, DUE SYNTHROID GIVEN WITH APPLE SAUCE, TOLERATED WELL, ORAL CARE DONE, NO DISTRESS NOTED, MONITORED CLOSELY.
--- NOTE | 2016-08-19 07:10 | NUR ---
RECEIVED REPORT FROM NIGHT NURSE AT BEDSIDE. PT IS SLEEPING. PT'S IV IS PATENT AND INTACT. IV IS LOCATED AT L AC 20 GAUGE AND SECOND IV IS LOCATED L FA 22 GAUGE. PT SHOWS NO S/S OF DISTRESS. PT IS ON ROOM AIR. PT'S BED IS LOWERED AND CALL LIGHT IS WITHIN REACH. WILL CONTINUE TO MONITOR.
--- NOTE | 2016-08-19 07:15 | NUR ---
PT SLEEPING, NO SIGNS OF DISTRESS, REPORT GIVEN TO CYNTHIA PONCE FOR CONTINUITY OF CARE.
[2016-08-19 08:00] VITALS: BP 102/48
[2016-08-19] MEDS: CHOLECALCIFEROL 1,000 IU TAB PO SCH (08:24)
[2016-08-19] MEDS: CALCIUM CARBONATE 500 MG TAB PO SCH ×3 (08:25→17:00)
[2016-08-19] MEDS: RALOXIFENE 60 MG TAB PO SCH (08:25)
[2016-08-19] MEDS: QUEtiapine FUMARATE 25 MG TAB PO SCH (08:25)
[2016-08-19] MEDS: DOCUSATE SODIUM 100 MG GELCAP PO SCH ×3 (08:25→09:00)
[2016-08-19] MEDS: OXYBUTYNIN 5 MG TAB PO SCH ×2 (08:26→21:02)
[2016-08-19] MEDS: CARBIDOPA/LEVODOPA 25/100 MG 1 TAB PO SCH ×2 (08:26→21:01)
[2016-08-19] MEDS: ASPIRIN 81 MG TAB.CHEW PO SCH (08:26)
[2016-08-19] MEDS: LORATADINE 10 MG TAB PO SCH (08:26)
--- NOTE | 2016-08-19 08:30 | NUR ---
SCHEDULED COLACE NOT ADMINISTERED. PT HAS DIFFICULTY SWALLOWING
[2016-08-19] MEDS: PANTOPRAZOLE 40 MG INJ VIAL IVP SCH (08:35)
[2016-08-19] MEDS: CLOTRIMAZOLE 1% 30 GM CRM TUBE TP SCH ×2 (09:00→21:03)
--- NOTE | 2016-08-19 10:00 | NUR ---
PT REPOSITIONED AND GIVEN BED BATH. PT TOLERATED WELL. PT IS NOT ON RESTRAINTS.
--- NOTE | 2016-08-19 10:45 | NUR ---
SPOKE WITH DR. JEREZ ABOUT PT'S MAGNESIUM OF 1.6.
[2016-08-19] MEDS ORDERED: DOCUSATE 100 MG/10 ML UDC PO SCH (11:15)
--- NOTE | 2016-08-19 11:45 | NUR ---
PT SHOWS NO S/S OF DISTRESS. PT IS SLEEPING.
--- NOTE | 2016-08-19 11:47 | NUR ---
SS NOTE: PER LISSY FROM [facility], SHE WILL COME TO EVALUATE PT TODAY. PER ALFONSO FROM [facility], THEY CANNOT TAKE PT AT THIS TIME ON RESTRAINTS AND MAY RECONSIDER PT IF PT CAN BE MANAGED WITHOUT RESTRAINTS PER ADRIA FROM [facility], THEY ARE UNABLE TO ACCEPT PT DUE TO HER BEHAVIORS AND RESTRAINTS
[2016-08-19 12:00] VITALS: BP 104/64
--- NOTE | 2016-08-19 12:30 | NUR ---
SCHEDULED MEDICATION NOT ADMINISTERED PT TOO LETHARGIC TO SWALLOW.
--- NOTE | 2016-08-19 12:30 | NUR ---
PT IS SLEEPING IN BED. PT SHOWS NO S/S OF DISTRESS. WILL CONTINUE TO MONITOR.
[2016-08-19] MEDS: THERAHONEY GEL 42.5 GM TP SCH (13:00)
[2016-08-19] MEDS ORDERED: MAG SULF 2000 MG/WATER PREMIX 50 ML IV SCH (14:00)
--- NOTE | 2016-08-19 15:09 | NUR ---
08/19/16 RD FOLLOW UP COMPLETED PLEASE REFER TO NUTRITION ASSESSMENT UNDER CARE ACTIVITY FOR ESTIMATED NUTRITIONAL NEEDS. RD RECOMMENDATIONS: 1. CONTINUE PUREE DIET WITH HONEY THICKENED LIQUIDS TOLERATED PER MD --ENCOURAGE INCREASED PO INTAKES 2. IF PT WITH POOR PO INTAKES < 50% AVERAGE, AND NGTUBE SUCCESSFULLY PLACED, CONSIDER INITIATING NUTRITION SUPPORT ISOSOURCE AT 20 ML/HR AND ADVANCE TOLERATED 10 ML Q4H TO GOAL OF 50 ML/HR. --AT GOAL THIS WILL PROVIDE 1200 ML TOTAL VOLUME, 1800 KCAL, [address] WILL F/U 2-3 DAYS; HIGH RISK. CASSIDY DOMINGUEZ RD
[2016-08-19 16:00] VITALS: BP 97/60
--- NOTE | 2016-08-19 17:00 | NUR ---
SCHEDULED MEDICATION NOT ADMINISTERED. PT IS TOO LETHARGIC TO SWALLOW.
--- NOTE | 2016-08-19 19:20 | NUR ---
GAVE PT REPORT AT BEDSIDE. PT ENDORSED IN STABLE CONDITION.
--- NOTE | 2016-08-19 19:21 | NUR ---
RECEIVED PT IN STABLE CONDITION FROM CYNTHIA CARBAJAL. NO SOB, NO SIGNS OF DISTRESS. PT IS AOX1, CONFUSED. VS STABLE ON ROOM AIR. PT IS BEDBOUND WITH SEVERE WEAKNESS TO ALL EXTREMITIES. PT CALM AND COOPERATIVE AT THIS TIME, NO RESTRAINTS APPLIED. PT WITH WOUND TO LT HIP, DRESSING DRY AND INTACT. 2 IV SITES TO LT FA AND AC BOTH 20G PATENT, ASYMPTOMATIC, INTACT. IVF RUNNING IN LT FA. ABRASIONS TO RT AND LT HANDS MARGARET. PT WITH INCONTINENT DERMATITIS TO RT BUTTOCK, NETWORK ANALYST. PT WITH FUNGUS TO TOES. FLACC 0. PLAN OF CARE DISCUSSED WITH PT. SAFETY MEASURES IN PLACE. CALL LIGHT WITHIN REACH. WILL CONTINUE TO MONITOR.
[2016-08-19 20:00] VITALS: BP 137/66
[2016-08-19] MEDS: OLANZapine 5 MG TAB PO SCH (21:02)
[2016-08-19] MEDS: QUEtiapine FUMARATE 100 MG TAB PO SCH (21:03)
[2016-08-19] MEDS: DIVALPROEX 500 MG TABER PO SCH (21:03)
[2016-08-19] MEDS: LEVOFLOXACIN 750 MG/D5W PREMIX 150 ML IV SCH (21:19)
--- NOTE | 2016-08-19 21:19 | NUR ---
PT TOLERATED DUE MEDS WELL. PIILLS CRUSHED IN PUREED DINNER FOODS. NO SOB, NO SIGNS OF DISTRESS. IV SITE ASYMPTOMATIC, INTACT, PATENT, IVF RUNNING. FLACC 0. PLAN OF CARE DISCUSSED WITH PT. SAFETY MEASURES IN PLACE. CALL LIGHT WITHIN REACH. WILL CONTINUE TO MONITOR.
[2016-08-20] VITALS: BP 98/59
--- NOTE | 2016-08-20 | NUR ---
VS STABLE ON ROOM AIR. NO SOB, NO SIGNS OF DISTRESS. IV SITE ASYMPTOMATIC, INTACT, PATENT, IVF RUNNING. FLACC 0 PLAN OF CARE DISCUSSED WITH PT. SAFETY MEASURES IN PLACE. CALL LIGHT WITHIN REACH. WILL CONTINUE TO MONITOR.
[2016-08-20] MEDS: NACL 0.9% IRR 250 ML BOTTLE IR SCH ×2 (00:11→13:00)
[2016-08-20] MEDS: GAUZE TP SCH ×2 (00:12→13:00)
[2016-08-20] MEDS: COMPOSITE DRESSING TP SCH ×2 (00:12→13:00)
--- NOTE | 2016-08-20 01:00 | NUR ---
PERFORMED WOUND CARE, CLEANED AND TURNED PT. PT TOLERATED WELL. FLACC 0. NO SOB, NO SIGNS OF DISTRESS. IV SITE ASYMPTOMATIC, INTACT, PATENT, IVF RUNNING. PLAN OF CARE DISCUSSED WITH PT. SAFETY MEASURES IN PLACE. CALL LIGHT WITHIN REACH. WILL CONTINUE TO MONITOR.
--- NOTE | 2016-08-20 02:50 | NUR ---
PT ASLEEP IN BED. NO SOB, NO SIGNS OF DISTRESS. IV SITE ASYMPTOMATIC, INTACT, PATENT, IVF RUNNING. FLACC 0. SAFETY MEASURES IN PLACE. CALL LIGHT WITHIN REACH. WILL CONTINUE TO MONITOR.
[2016-08-20 04:00] VITALS: BP 107/62
--- NOTE | 2016-08-20 04:00 | NUR ---
VS STABLE ON ROOM AIR. NO SOB, NO SIGNS OF DISTRESS. IV SITE ASYMPTOMATIC, INTACT, PATENT, IVF RUNNING. FLACC 0. PLAN OF CARE DISCUSSED WITH PT. SAFETY MEASURES IN PLACE. CALL LIGHT WITHIN REACH. WILL CONTINUE TO MONITOR.
[2016-08-20] MEDS: DEXT 5% /NACL 0.9% 1,000 ML IV SCH (05:56)
[2016-08-20] MEDS: NACL 0.9% 1,000 ML IV SCH ×2 (05:56→21:09)
[2016-08-20] MEDS: LEVOTHYROXINE 0.088 MG TAB PO SCH (05:57)
--- NOTE | 2016-08-20 07:15 | NUR ---
RECEIVED PATIENT REPORT AT BEDSIDE. PATIENT ASLEEP BUT AROUSABLE. NO S/S OF DISTRESS NOTED. SOFT MITTENS IN PLACE ON BOTH HANDS. PATIENT ON ROOM AIR. IV LINE TO THE LEFT FOREARM INTACT WITH IVF INFUSING WELL. PT ON TELE MONITORING. BED LOWERED WITH CALL LIGHT WITHIN REACH. WILL CONTINUE TO MONITOR
--- NOTE | 2016-08-20 07:20 | NUR ---
ENDORSED PT IN STABLE CONDITION TO KRIS Del Cid RN. ALL NEEDS HAVE BEEN MET AT THIS TIME.
[2016-08-20 07:54] VITALS: BP 112/68
[2016-08-20] MEDS: PANTOPRAZOLE 40 MG INJ VIAL IVP SCH (08:58)
[2016-08-20] MEDS: RALOXIFENE 60 MG TAB PO SCH ×2 (09:00→11:59)
[2016-08-20] MEDS: ASPIRIN 81 MG TAB.CHEW PO SCH ×2 (09:00→11:59)
[2016-08-20] MEDS: LORATADINE 10 MG TAB PO SCH (09:00)
[2016-08-20] MEDS ORDERED: QUEtiapine FUMARATE 25 MG TAB PO SCH (09:00)
[2016-08-20] MEDS: CHOLECALCIFEROL 1,000 IU TAB PO SCH (09:00)
[2016-08-20] MEDS: CALCIUM CARBONATE 500 MG TAB PO SCH ×3 (09:00→16:40)
[2016-08-20] MEDS: OXYBUTYNIN 5 MG TAB PO SCH ×2 (09:00→21:35)
[2016-08-20] MEDS: DOCUSATE 100 MG/10 ML UDC PO SCH ×2 (09:00→11:59)
[2016-08-20] MEDS: CARBIDOPA/LEVODOPA 25/100 MG 1 TAB PO SCH ×3 (09:00→21:36)
--- NOTE | 2016-08-20 09:13 | NUR ---
SCHEDULED PO MEDS NOT ADMINISTERED. PATIENT TOO SOMNOLENT AND IS AT RISK FOR ASPIRATION. MADE DR JEREZ AWARE
--- NOTE | 2016-08-20 09:53 | NUR ---
PATIENT ASLEEP IN BED. NO S/S OF DISTRESS NOTED
[2016-08-20] MEDS ORDERED: QUEtiapine FUMARATE 100 MG TAB PO SCH (11:32)
[2016-08-20 12:00] VITALS: BP 103/62
--- NOTE | 2016-08-20 12:00 | NUR ---
ADMINISTERED MEDICATIONS. PT IS AWAKE AND ABLE TO FOLLOW SIMPLE COMMANDS. PT CALM AND COOPERATIVE.
[2016-08-20] MEDS: THERAHONEY GEL 42.5 GM TP SCH (13:00)
[2016-08-20] MEDS ORDERED: MAG SULF 2000 MG/WATER PREMIX 50 ML IV SCH (13:57)
--- NOTE | 2016-08-20 14:00 | NUR ---
PT WAS FED LUNCH. PT TOLERATED WELL. PT SHOWS NO S/S OF DISTRESS. WILL CONTINUE TO MONITOR.
[2016-08-20 15:59] VITALS: BP 103/58
--- NOTE | 2016-08-20 16:00 | NUR ---
PT IN BED SLEEPING. SHOWS NO S/S OF DISTRESS. WILL CONTINUE TO MONITOR.
[2016-08-20] MEDS ORDERED: ACETAMINOPHEN 325 MG TAB PO PRN (16:20)
--- NOTE | 2016-08-20 17:30 | NUR ---
PT IS BEING FED DINNER. PT TOLERATED WELL.
--- NOTE | 2016-08-20 19:15 | NUR ---
GAVE REPORT TO NIGHT NURSE. ENDORSED PT IN STABLE CONDITION.
--- NOTE | 2016-08-20 19:35 | NUR ---
RECEIVED REPORT FROM CYNTHIA CARBAJAL/KRIS AT BEDSIDE. PT AAOX1. PT IS BEDBOUND. PT HAS IV TO LEFT AC G 20; ASYMPTOMATIC, PATENT AND INTACT INFUSING FLUIDS WELL. PT HAS REDNESS ASSOCIATED WITH INCONTINENCE. PT HAS A LEFT HIP ULCER COVERED WITH DRESSING DRY AND INTACT. PT HAS BILATERAL HANDS ABRASIONS. PT HAS MITTENS ON TO PREVENT PT FROM BITING HER HANDS. ORIENTED PT TO ROOM AND SURROUNDING. REINFORCEMENT NEEDED. SAFETY MEASURES IN PLACE, BED ALARM ON.
--- NOTE | 2016-08-20 20:00 | NUR ---
PT TUNED AND REPOSITIONED. BED ALARM ON.
[2016-08-20] MEDS: DIVALPROEX 500 MG TABER PO SCH (21:34)
[2016-08-20] MEDS: OLANZapine 5 MG TAB PO SCH (21:35)
[2016-08-20] MEDS: QUEtiapine FUMARATE 100 MG TAB PO SCH (21:35)
--- NOTE | 2016-08-20 21:41 | NUR ---
PT TOLERATED 2100 MEDS WELL. MEDICATIONS GIVEN CRUSHED WITH APPLE SAUCE. WILL CONTINUE TO MONITOR PT.
--- NOTE | 2016-08-20 21:48 | NUR ---
PT HAS D5-0.9 NS INFUSING. BED ALARM ON.
--- NOTE | 2016-08-20 22:00 | NUR ---
PT TUNED AND REPOSITIONED; LINEN CHANGED. BED ALARM ON.
--- NOTE | 2016-08-20 23:20 | NUR ---
PT ASKED FOR CHOCOLATE MILK. THIS IS THE FIRST TIME I HEAR HER SPEAK. I GAVE HER MILK WITH A STRAW AND SHE DRANK WELL. WILL CONTINUE TO MONITOR PT. BED ALARM ON.
[2016-08-21] VITALS: BP 112/68
--- NOTE | 2016-08-21 | NUR ---
PT TUNED AND REPOSITIONED; WILL CONTINUE TO MONITOR PT. Addendum: 08/21/16 at 0035 by Randi Christopher RN PT TURNED AND REPOSITIONED.
--- NOTE | 2016-08-21 00:19 | NUR ---
PT'S VS STABLE, PT AWAKE WATCHING TV. NO SIGNS OF DISTRESS NOTED. BED ALARM ON.
[2016-08-21] MEDS: COMPOSITE DRESSING TP SCH ×2 (01:15→12:04)
[2016-08-21] MEDS: NACL 0.9% IRR 250 ML BOTTLE IR SCH ×2 (01:15→12:04)
[2016-08-21] MEDS: GAUZE TP SCH ×2 (01:15→12:04)
--- NOTE | 2016-08-21 02:05 | NUR ---
ENDORSED PLAN OF CARE TO MASCARA MOLDER FAIRY. PT IN STABLE CONDITION.
--- NOTE | 2016-08-21 02:10 | NUR ---
RECEIVED REPORT FROM YANNA MARIE.PT IS IN STABLE CONDITION.NO S/S OF ANY PAIN AND/OR RESP.DISTRESS NOTED.WILL CONTINUE MONITORING.
--- NOTE | 2016-08-21 06:28 | NUR ---
STILL IS SLEEPING.NO RESP DISTRESS NOTED.IVF INFUSING WELL.FREQUENT ROUND DONE.REPOSITIONED Q2H.
--- NOTE | 2016-08-21 07:29 | NUR ---
RECEIVED PT ASLEEP BUT EASILY AROUSABLE, PT CONFUSED, AOX1, WITH NO S/S OF RESPIRATORY DISTRESS OR DISCOMFORT. WITH IV ACCESS AT LEFT AC INFUSING FLUIDS WELL. WITH PRESSURE ULCER AT LEFT HIP WITH DRY AND INTACT DRESSING. SAFETY PRECAUTIONS ENFORCED. CALL LIGHT WITHIN REACH, WILL CONTINUE TO MONITOR.
[2016-08-21] MEDS: DEXT 5% /NACL 0.9% 1,000 ML IV SCH (07:30)
[2016-08-21] MEDS: LEVOTHYROXINE 0.088 MG TAB PO SCH (07:36)
[2016-08-21 08:00] VITALS: BP 121/67
--- NOTE | 2016-08-21 08:05 | NUR ---
REPOSITIONED PT TO SIDE WITH CYNTHIA PONCE, KEPT CLEAN AND DRY. SAFETY PRECAUTIONS ENFORCED. WILL CONTINUE TO MONITOR.
[2016-08-21] MEDS: QUEtiapine FUMARATE 100 MG TAB PO SCH ×2 (08:54→22:08)
[2016-08-21] MEDS: CHOLECALCIFEROL 1,000 IU TAB PO SCH (08:54)
[2016-08-21] MEDS: RALOXIFENE 60 MG TAB PO SCH (08:54)
[2016-08-21] MEDS: ASPIRIN 81 MG TAB.CHEW PO SCH (08:55)
[2016-08-21] MEDS: CALCIUM CARBONATE 500 MG TAB PO SCH ×3 (08:55→16:24)
[2016-08-21] MEDS: CARBIDOPA/LEVODOPA 25/100 MG 1 TAB PO SCH ×2 (08:55→22:04)
[2016-08-21] MEDS: PANTOPRAZOLE 40 MG INJ VIAL IVP SCH (08:55)
[2016-08-21] MEDS: OXYBUTYNIN 5 MG TAB PO SCH ×2 (08:55→22:04)
[2016-08-21] MEDS: LORATADINE 10 MG TAB PO SCH (08:55)
[2016-08-21] MEDS: DOCUSATE 100 MG/10 ML UDC PO SCH (08:55)
--- NOTE | 2016-08-21 09:08 | NUR ---
DUE MEDS GIVEN, PT TOLERATED WELL. HAD BREAKFAST WITH GOOD APPETITE. WILL CONTINUE TO MONITOR.
--- NOTE | 2016-08-21 10:19 | NUR ---
KEPT CLEAN AND DRY. PT REPOSITIONED TO SIDE. PT CALM AND QUIET, WILL CONTINUE TO MONITOR.
--- NOTE | 2016-08-21 11:22 | NUR ---
SS NOTE: MESSAGE LEFT FOR PT'S [facility] FILL[facility] SPREADERPAZ REGARDING SHORT TERM SNF PLACEMENT
[2016-08-21] MEDS ORDERED: MAGNESIUM OXIDE 400 MG TAB PO SCH (12:00)
[2016-08-21] MEDS: THERAHONEY GEL 42.5 GM TP SCH (12:04)
--- NOTE | 2016-08-21 12:34 | NUR ---
LUNCH SERVED, PT HAS GOOD APPETITE. COMFORT MEASURES DONE, REPOSITIONED PT TO SIDE.
--- NOTE | 2016-08-21 13:22 | NUR ---
SS NOTE: PER LISSY FROM [facility] ([phone]), PT CAN GO TO ROOM 5C UNDER DR. Gege PAIZ ANYTIME UPON DISCHARGE.
--- NOTE | 2016-08-21 14:10 | NUR ---
PT ASLEEP, NO S/S OF DISTRESS. REPOSITIONED PT TO SIDE. WILL CONTINUE TO MONITOR
--- NOTE | 2016-08-21 14:45 | NUR ---
SS NOTE: I RECEIVED A CALL BACK FROM PT'S [facility], AISHA AND SHE STATED THAT SHE IS IN AGREEMENT WITH PT GOING TO [facility] UPON DISCHARGE.
[2016-08-21 16:00] VITALS: BP 106/69
--- NOTE | 2016-08-21 16:18 | NUR ---
PT ASLEEP BUT EASILY AROUSABLE. NO COMPLAINS OF PAIN--FLACC 0. REPOSITIONED TO SIDE, SAFETY PRECAUTIONS ENFORCED. CALL LIGHT WITHIN REACH, WILL CONTINUE TO MONITOR
--- NOTE | 2016-08-21 17:59 | NUR ---
ASSISTED PT WITH DINNER, HAS GOOD APPETITE. PT CRYING AND TOUCHING HER LEG, NODDED WHEN ASKED IF IN PAIN. WILL ADMINISTER NORCO
--- NOTE | 2016-08-21 18:38 | NUR ---
REPOSITIONED PT, KEPT CLEAN AND DRY
--- NOTE | 2016-08-21 19:35 | NUR ---
RECEIVED REPORT FROM DAY SHIFT NURSE. PT IS RESTING AT THIS TIME, NOT IN DISTRESS. ON ROOM AIR, NO S/S OF RESPIRATORY DISTRESS/DISCOMFORT NOTED. IV SITE IS PATENT AND INTACT. PLAN OF CARE DISCUSSED, UNABLE TO COMPREHEND. SAFETY MEASURES CHECKED, CALL LIGHT WITHIN REACH. WILL CONTINUE TO MONITOR.
--- NOTE | 2016-08-21 19:35 | NUR ---
ENDORSED PT TO CYNTHIA WHITEHEAD FOR CONTINUITY OF CARE IN STABLE CONDITION
[2016-08-21] MEDS: DIVALPROEX 500 MG TABER PO SCH (22:04)
[2016-08-21] MEDS: OLANZapine 5 MG TAB PO SCH (22:04)
--- NOTE | 2016-08-21 22:14 | NUR ---
DUE MEDS GIVEN.PT TOLERATED WELL.
[2016-08-22] VITALS: BP 106/66
--- NOTE | 2016-08-22 00:11 | NUR ---
V/S CHECKED AND STABLE. FLACC- 0. NO SOB NOTED. REPOSITIONED PT.
[2016-08-22] MEDS: COMPOSITE DRESSING TP SCH (02:09)
[2016-08-22] MEDS: GAUZE TP SCH (02:09)
[2016-08-22] MEDS: NACL 0.9% IRR 250 ML BOTTLE IR SCH (02:09)
--- NOTE | 2016-08-22 02:19 | NUR ---
EYES CLOSED, RESTING QUIETLY, BREATHING EVENLY AND UNLABORED. NO SOB NOTED.
--- NOTE | 2016-08-22 04:28 | NUR ---
REPOSITIONED THE PT. FLACC-0. NO SOB NOTED. CALL LIGHT WITHIN REACH.
[2016-08-22] MEDS: DEXT 5% /NACL 0.9% 1,000 ML IV SCH (05:53)
[2016-08-22] MEDS: LEVOTHYROXINE 0.088 MG TAB PO SCH (05:53)
--- NOTE | 2016-08-22 06:07 | NUR ---
DUE PO MED GIVEN. PT TOLERATED WELL. AM CARE DONE. NOT IN DISTRESS. NO S/S OF RESPIRATORY DISTRESS/DISCOMFORT NOTED.
--- NOTE | 2016-08-22 07:30 | NUR ---
ENDORSED REPORT TO DAY SHIFT NURSE FOR CONTINUITY OF CARE. PT IN STABLE CONDITION.
[2016-08-22 08:00] VITALS: BP 107/54
--- NOTE | 2016-08-22 09:30 | NUR ---
PT CONSUMED 80% OF BREAKFAST SERVED. WITH ASPIRATION PRECAUTIONS.
[2016-08-22] MEDS: PANTOPRAZOLE 40 MG INJ VIAL IVP SCH (10:30)
[2016-08-22] MEDS: CHOLECALCIFEROL 1,000 IU TAB PO SCH (10:31)
[2016-08-22] MEDS: ASPIRIN 81 MG TAB.CHEW PO SCH (10:32)
[2016-08-22] MEDS: OXYBUTYNIN 5 MG TAB PO SCH (10:32)
[2016-08-22] MEDS: LORATADINE 10 MG TAB PO SCH (10:32)
[2016-08-22] MEDS: RALOXIFENE 60 MG TAB PO SCH (10:32)
[2016-08-22] MEDS: CARBIDOPA/LEVODOPA 25/100 MG 1 TAB PO SCH (10:32)
[2016-08-22] MEDS: CALCIUM CARBONATE 500 MG TAB PO SCH (10:32)
[2016-08-22] MEDS: DOCUSATE 100 MG/10 ML UDC PO SCH (10:34)
[2016-08-22] MEDS: QUEtiapine FUMARATE 100 MG TAB PO SCH (10:34)
--- NOTE | 2016-08-22 11:12 | NUR ---
CM NOTE: SPOKE TO ABDON FROM [facility] AND SET UP BLS TRANPORT. RN BIRTHING TIME 1600HRS. PATIENT WILL BE DISCHARGED TO [facility] ROOM [address] UNDER DR[address] PAIZ. [facility] FORM FAXED TO [phone]. CHARGE NURSE AND CYNTHIA BURRELL MADE AWARE.
[2016-08-22] MEDS ORDERED: MAG SULF 2000 MG/WATER PREMIX 100 ML IV SCH (12:00)
[2016-08-22] MEDS ORDERED: QUETIAPINE FUM100 M1 PO ×2 (12:08)
[2016-08-22] MEDS ORDERED: IPRATROPIUM BROM3 M1 IH (12:08)
[2016-08-22] MEDS ORDERED: DEPAKOTE500 M1 PO (12:08)
--- NOTE | 2016-08-22 12:30 | NUR ---
PT CONSUMED 100% OF LUNCH SERVED. WITH ASPIRATION PRECAUTIONS.
--- NOTE | 2016-08-22 15:00 | NUR ---
DISCHARGE PHOTO OF LEFT HIP WOUND TAKEN AND DOCUMENTED.
--- NOTE | 2016-08-22 16:00 | NUR ---
REPORT GIVEN TO NURSE CARRASQUILLO. PT IS GOING TO [facility] ROOM 5C. PAZ MALIN FROM [facility] NOTIFIED TO WHERE PT IS GOING.
--- NOTE | 2016-08-22 16:25 | NUR ---
PT PICKED UP BY [facility] TRANSPORT IN STABLE CONDITION. PT IS GOING TO [facility].
[2016-09-30] MEDS ORDERED: VITAMIN C500 M8 PO (07:27)
[2016-09-30] MEDS ORDERED: [UNRECOGNIZED DRUG - OTHER] PO (07:27)
[2016-09-30] MEDS ORDERED: FERROUS SULFAT325 MG PO (07:27)
[2016-09-30] MEDS ORDERED: FLAGYL500 MG PO (07:27)
[2016-09-30] MEDS ORDERED: NORCO 325 MG-51 TAB PO ×2 (07:27)
[2016-09-30] MEDS ORDERED: NATURE S BLEND PO (07:27)
[2016-09-30] MEDS ORDERED: ACIDOPHILUS1 EAC1 PO (07:27)
[2016-09-30] MEDS ORDERED: LASIX20 MG PO (07:27)
[2016-09-30] MEDS ORDERED: OYSTERCAL-D 5001 TAB PO (07:34)
[2016-09-30] MEDS ORDERED: ZINC SULFATE220 M1 PO (07:36)
[2016-10-04] MEDS ORDERED: CHILDREN'S160 MG/15 NG (13:21)
[2016-10-04] MEDS ORDERED: EVISTA60 MG NG (13:21)
[2016-10-04] MEDS ORDERED: LEVOTHYROXIN0.088 M2 NG (13:21)
[2016-10-04] MEDS ORDERED: CARDIZEM30 M1 NG (13:21)
[2016-10-04] MEDS ORDERED: OSCAL500 MG NG (13:21)
[2016-10-04] MEDS ORDERED: NOVAPLUS ONDA2 MG/M1 IVP (13:21)
[2016-10-04] MEDS ORDERED: MORPHINE SU2 MG/1 ML IVP (13:21)
[2016-10-04] MEDS ORDERED: ATIVAN2 MG/M1 IM/IVP (13:21)
[2016-10-04] MEDS ORDERED: PHARMASSURE VI500 MG NG (13:21)
[2016-10-04] MEDS ORDERED: DEPAKENE250 MG/51 NG (13:21)
[2016-10-04] MEDS ORDERED: IPRATROPIUM BROM3 M1 IH ×2 (13:21)
[2016-10-04] MEDS ORDERED: QUETIAPINE FUM100 M1 NG ×2 (13:21)
[2016-10-04] MEDS ORDERED: ZINC SULFATE220 M2 NG (13:21)
[2016-10-04] MEDS ORDERED: ATORVASTATIN CA20 MG NG (13:21)
[2016-10-04] MEDS ORDERED: CULTURELLE10 Billion NG (13:21)
[2016-10-04] MEDS ORDERED: OLANZAPINE5 MG NG (13:21)
[2016-10-04] MEDS ORDERED: BLOOD GLUCOSE1 EACH MC (13:21)
[2016-10-04] MEDS ORDERED: FERROUS SU300 MG/5 M NG (13:21)
[2016-10-04] MEDS ORDERED: COLACE NG (13:21)
[2016-10-04] MEDS ORDERED: HUMALOG SL100 UNITS/ SUBQ (13:21)
[2016-10-04] MEDS ORDERED: LEVAQUIN500 M1 IV (13:28)
[2016-10-04] MEDS ORDERED: PREMIERPRO IV (13:48)
[2016-10-04] MEDS ORDERED: LASIX10 MG/M2 IVP (13:49)
== END 2016-08-22 16:25 | DRG 166 ==
LOC: MED 16:25 → MTU 22:19
PROVIDERS: ADMIT Family Medicine; ATTEND Family Medicine
PROC: 0JBM0ZZ Excision of Left Upper Leg Subcutaneous Tissue and Fascia, Open Approach (ICD-10-PCS; principal; 2016-08-16)
DX: J69.0 Pneumonitis due to inhalation of food and vomit (principal); G93.41 Metabolic encephalopathy; N17.0 Acute kidney failure with tubular necrosis; E43 Unspecified severe protein-calorie malnutrition; L89.223 Pressure ulcer of left hip, stage 3; F72 Severe intellectual disabilities; L03.113 Cellulitis of right upper limb; F02.81 Dementia in other diseases classified elsewhere, unspecified severity, with behavioral disturbance; B35.1 Tinea unguium; E03.9 Hypothyroidism, unspecified; K21.9 Gastro-esophageal reflux disease without esophagitis; M81.0 Age-related osteoporosis without current pathological fracture; N32.81 Overactive bladder; G25.81 Restless legs syndrome; S62.101A Fracture of unspecified carpal bone, right wrist, initial encounter for closed fracture; G20 Parkinson's disease; R13.10 Dysphagia, unspecified; E83.42 Hypomagnesemia; F29 Unspecified psychosis not due to a substance or known physiological condition; G30.9 Alzheimer's disease, unspecified; Z60.2 Problems related to living alone; G40.909 Epilepsy, unspecified, not intractable, without status epilepticus; Z79.82 Long term (current) use of aspirin; Z79.899 Other long term (current) drug therapy; Z68.26 Body mass index [BMI] 26.0-26.9, adult